=== PATIENT | male | born 1955 | race American Indian/Alaskan Native ===

== ENCOUNTER 2016-08-27 12:19 | Emergency (ER) | payer OTHER ==
--- NOTE | 2016-08-27 12:54 | Emergency Department Report ---
Chief Complaint: Headache Stated Complaint: MIGRAINE Time Seen by Provider: 08/27/16 12:45 - HPI History of Present Illness: powers has migraines 61 yo told htn no meds suppose to be details not known here w no meds beer cigars mom a/w dad dec ? 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 Due to findings the following was ordered: ED Disposition for MSE Condition: Stable
[2016-08-27 13:06] LABS: Basophils % (Auto) 0.6 % (0.0-1.8); Eosinophils % (Auto) 0.7 % (0.0-4.3); Hematocrit 44.6 % (35.5-45.6); Hemoglobin 15.1 gm/dl (11.8-15.2); Mean Corpuscular HGB Conc 34 % (32-34); Mean Corpuscular Hemoglobin 33 pg (28-32); Mean Corpuscular Volume 99 fl (84-94); Platelet Count 316 K/mm3 (140-440); Red Blood Count 4.52 M/mm3 (3.65-5.03); Red Cell Distribution Width 13.7 % (13.2-15.2); White Blood Count 6.7 K/mm3 (4.5-11.0)
[2016-08-27 13:30] LABS: Erythrocyte Sedimentation Rate 1 mm/Hr (0-20)
[2016-08-27 13:46] LABS: Alanine Aminotransferase 16 units/L (7-56); Albumin 4.1 g/dL (3.9-5); Albumin/Globulin Ratio 1.3 %; Alkaline Phosphatase 73 units/L (35-129); Anion Gap 17 mmol/L; Blood Urea Nitrogen 14 mg/dL (9-20); Calcium 9.3 mg/dL (8.4-10.2); Carbon Dioxide 24 mmol/L (22-30); Chloride 99.3 mmol/L (98-107); Glucose 112 mg/dL (75-100); Potassium 4.3 mmol/L (3.6-5.0); Sodium 136 mmol/L (137-145); Total Protein 7.3 g/dL (6.3-8.2)
--- NOTE | 2016-08-27 14:01 | XRay Report ---
CHEST 2 VIEWS INDICATION: Headache. COMPARISON: None similar. FINDINGS: PA and lateral chest radiographs demonstrate normal cardiomediastinal silhouette. Clear, well-expanded lungs except for small right upper lobe probable clustered calcifications, in aggregate approximately 6-7 mm. Intact bones. CONCLUSION: No acute chest process with probable old healed granulomatous disease, as described. Please also correlate clinically and with prior chest imaging, if available. Thank you for the opportunity to participate in this patient's care.
[2016-08-27 17:27] LABS: Bilirubin,Urine NEG (Negative); Blood,Urine NEG (Negative); Ketones,Urine NEG (Negative); Leukocyte Esterase,Urine NEG (Negative); Mucus,Urine FEW /HPF; Nitrite,Urine NEG (Negative); Protein,Urine <15 mg/dL mg/dL (Negative); Urobilinogen,Urine < 2.0 mg/dL (<2.0); WBC,Urine < 1.0 /HPF (0.0-6.0)
[2016-08-27] MEDS ORDERED: BENADRYL IV ONE (21:50)
[2016-08-27] MEDS ORDERED: FIORICET PO ONE (21:50)
[2016-08-27] MEDS ORDERED: REGLAN IV ONE (21:50)
--- NOTE | 2016-08-27 21:56 | Emergency Department Report ---
ED Headache HPI - General Chief Complaint: Headache Stated Complaint: MIGRAINE Time Seen by Provider: 08/27/16 21:37 - History of Present Illness Initial Comments: 61-year-old male with no significant medical history presenting today because of headache. Patient states that he's had this in the past and there may have been a possible diagnosis of temporal arteritis but the patient did not have any biopsy and did not follow-up with a local delivery driver. He states that the headache is on his forehead and his right taoism. Has been going on for the last 2 weeks. Has taken Tylenol 500 mg multiple times without significant relief. Does not have any history of aneurysms that he is aware of. Denies any numbness, weakness, difficulty walking or talking. Has no changes in his vision including no diplopia, decreased vision or pain with eye movement. Allergies/Adverse Reactions: Allergies No Known Allergies Allergy (Verified 11/20/15 03:59) Home Medications: Ambulatory Orders HYDROcodone/APAP 5-325 [[place] 5-325 mg TAB] 1 each PO Q6HR PRN #16 tablet predniSONE [Deltasone] 40 mg PO QDAY #14 tab 09/12/13 Butalb/Acetaminophen/Caffeine [Fioricet 50-300-40 mg CAP] 1 cap PO Q6HR PRN #7 cap 11/20/15 Labetalol [Normodyne TAB] 100 mg PO BID #60 tablet 11/20/15 Lisinopril/Hydrochlorothiazide [Zestoretic 10-12.5 mg] 1 tab PO QDAY #30 tablet 11/20/15 Butalb/Acetamin/Caff 50-325-40 [Fioricet] 1 each PO Q4H PRN #12 tablet 08/28/16 Ibuprofen [Motrin] 400 mg PO Q8H PRN #12 tablet 08/28/16 ED Review of Systems ROS: Stated complaint: MIGRAINE Other details as noted in HPI Comment: All other systems reviewed and negative Constitutional: denies: chills, fever Eyes: denies: eye pain Respiratory: denies: cough Cardiovascular: denies: chest pain Gastrointestinal: denies: nausea, vomiting Skin: denies: rash Neurological: headache. denies: weakness, numbness, paresthesias, confusion, abnormal gait, vertigo Psychiatric: denies: anxiety ED Past Medical Hx - Past Medical History Previous Medical History?: Yes Hx Hypertension: Yes Hx Headaches / Migraines: Yes (MIGRAINE) - Surgical History Past Surgical History?: No - Social History Smoking Status: Current Every Day Smoker Substance Use Type: None - Medications Home Medications: Home Medications Medication Instructions Recorded Confirmed Last Taken Type HYDROcodone/APAP 5-325 [[place] 1 each PO Q6HR PRN #16 tablet 09/12/13 Unknown Rx 5-325 mg TAB] predniSONE [Deltasone] 40 mg PO QDAY #14 tab 09/12/13 Unknown Rx Butalb/Acetaminophen/Caffeine 1 cap PO Q6HR PRN #7 cap 11/20/15 Unknown Rx [Fioricet 50-300-40 mg CAP] Labetalol [Normodyne TAB] 100 mg PO BID #60 tablet 11/20/15 Unknown Rx Lisinopril/Hydrochlorothiazide 1 tab PO QDAY #30 tablet 11/20/15 Unknown Rx [Zestoretic 10-12.5 mg] Butalb/Acetamin/Caff 50-325-40 1 each PO Q4H PRN #12 tablet 08/28/16 Unknown Rx [Fioricet] Ibuprofen [Motrin] 400 mg PO Q8H PRN #12 tablet 08/28/16 Unknown Rx ED Physical Exam - General Limitations: No Limitations General appearance: alert, in no apparent distress - Head Head exam: Present: atraumatic - Eye Eye exam: Present: normal appearance - Respiratory Respiratory exam: Present: normal lung sounds bilaterally. Absent: respiratory distress, wheezes - Cardiovascular Cardiovascular Exam: Present: regular rate, normal rhythm - GI/Abdominal GI/Abdominal exam: Present: soft. Absent: distended, tenderness - Neurological Exam Neurological exam: Present: alert, oriented X3, CN II-XII intact. Absent: motor sensory deficit - Expanded Neurological Exam Expanded Neurological exam: Absent: innattentive, memory loss-remote event Patient oriented to: Present: person, place, time Speech: Present: fluid speech Cranial nerves: EOM's Intact: Normal, Tongue Deviation: Normal, Nystagmus: Normal, Facial Sensation: Normal Ataxia: Absent: yes Sensory exam: Upper Extremity Light Touch: Normal, Lower Extremity Light Touch: Normal Motor strength exam: RUE: 5, LUE: 5, RLE: 5, LLE: 5 Best Eye Response ([place]): (4) open spontaneously Best Motor Response (Johnathan): (6) obeys commands Best Verbal Response (Johnathan): (5) oriented Johnathan Total: 15 - Psychiatric Psychiatric exam: Present: normal affect - Skin Skin exam: Present: intact ED Course Vital Signs 08/27/16 08/27/16 08/27/16 12:44 21:45 23:00 Temperature 97.8 F Pulse Rate 63 68 64 Respiratory 16 16 16 Rate Blood Pressure 191/127 Blood Pressure 171/104 182/97 [Left] O2 Sat by Pulse 100 100 100 Oximetry 08/28/16 08/28/16 00:06 01:24 Temperature Pulse Rate 64 64 Respiratory 16 16 Rate Blood Pressure Blood Pressure 180/98 146/95 [Left] O2 Sat by Pulse 100 97 Oximetry - Reevaluation(s) Reevaluation #1: 08/28/16 02:37 Patient's headache has resolved at this time, CT of the head does not show any acute disease, CRP was negative and platelet count was in the normal range, suspicion for giant cell arteritis is very low. We'll recommend the patient follow up with neurology. Discharged home. ED Medical Decision Making - Lab Data Result diagrams: 08/27/16 12:57 08/27/16 12:57 - Medical Decision Making labs preordered CT head due to age, crp added to look for inflammation, benadryl/reglan and fioricet Critical care attestation.: If time is entered above; I have spent that time in minutes in the direct care of this critically ill patient, excluding procedure time. ED Disposition Clinical Impression: Headache Qualifiers: Headache type: unspecified Headache chronicity pattern: unspecified pattern Intractability: not intractable Qualified Code(s): R51 - Headache Disposition: DISCHARGED TO HOME OR SELFCARE Is pt being admited?: No Does the pt Need Aspirin: No Condition: Stable Instructions: Acute Headache (ED) Additional Instructions: Please follow up with the primary care physician in the next 3-5 days. Please make a routine appointment with a neurologist in the next 1-2 weeks. Return the ER if your symptoms worsen or you develop new symptoms. Prescriptions: Butalb/Acetamin/Caff 50-325-40 [Fioricet] 1 each PO Q4H PRN #12 tablet PRN Reason: Headache Ibuprofen [Motrin] 400 mg PO Q8H PRN #12 tablet PRN Reason: Headache Referrals: PRIMARY CARE, [Primary Care Provider] - 3-5 Days [facility] [Provider Group] - 3-5 Days Time of Disposition: 02:37
[2016-08-27] MEDS ORDERED: MORPHINE IV ONE (23:35)
[2016-08-28 02:59] VITALS: BP 142/92
--- NOTE | 2016-08-28 07:58 | Cat Scan Report ---
FINAL REPORT EXAM: CT HEAD/BRAIN WO CON HISTORY: headache TECHNIQUE: Noncontrast serial axial images from skull base to vertex PRIORS: None. FINDINGS: There is moderate atrophy. There is no mass effect or midline shift. There are no abnormal intra or extra-axial fluid collections. Lateral ventricles are within normal limits for size and configuration. Basilar cisterns are patent. No acute intracranial hemorrhage is identified. Areas of relative hypodensity are seen in the white matter of the cerebral hemispheres. Atherosclerotic changes are noted. Mucosal thickening is seen in some of the ethmoidal air cells on the right side. No acute osseous abnormality is identified. IMPRESSION: 1. No abnormal mass or acute intracranial hemorrhage is identified. 2. Areas of relative hypodensity are seen in the white matter of the cerebral hemispheres. This is a nonspecific finding. It may be related to chronic ischemic change from small vessel disease.
== END 2016-08-28 02:58 | disposition home or self-care (01) ==
LOC: ED 12:19
DX: G43.909 Migraine, unspecified, not intractable, without status migrainosus (principal); I10 Essential (primary) hypertension; F17.200 Nicotine dependence, unspecified, uncomplicated
CPT/HCPCS: 36415; 70450; 71020; 80053; 81001; 85025; 85652; 86140; 93005; 93010; 96374; 96375; 99285; J1200; J2270; J2765